=== PATIENT | female | born 2000 | race Caucasian/White ===

== ENCOUNTER 2022-04-08 15:53 | Emergency (ER) | payer OTHER ==
[~2022-04-08] VITALS: Ht 157.5 cm; Wt 81.8 kg
[2022-04-08] MEDS ORDERED: ONDANSETRON 4MG 2ML VIAL IV ONE (16:30)
[2022-04-08] MEDS ORDERED: MORPHINE 4 MG/ML 1ML VIAL IV ONE (16:30)
[2022-04-08] MEDS ORDERED: NS 1,000 ML IV ONE (16:30)
[2022-04-08] MEDS ORDERED: ACETAMINOPHEN TAB 650MG DOSE (2X325MG) PO ONE (16:35)
[2022-04-08 17:46] LABS: BASO % 0.5 % (0.0-1.0); HEMOGLOBIN 14.8 g/dl (12.0-15.5); LYMPH # 0.4 10^3/uL (1.5-5.0); LYMPH % 6.6 % (24.0-44.0); MEAN CORPUSCULAR HGB CONC 33.6 g/dl (32.0-36.5); MEAN CORPUSCULAR VOLUME 86.1 fl (80.0-96.0); MONO # 0.3 10^3/uL (0.0-0.8); MONO % 4.7 % (2.0-8.0); NEUTROPHILS # 5.8 10^3/uL (1.5-8.5); NEUTROPHILS % 87.9 % (36.0-66.0); PLATELET COUNT, AUTOMATED 184 10^3/uL (150-450); RED BLOOD COUNT 5.11 10^6/uL (4.00-5.40); WHITE BLOOD COUNT 6.6 10^3/uL (4.0-10.0)
[2022-04-08 18:11] LABS: ALBUMIN 3.7 G/DL (3.2-5.2); BILIRUBIN,DIRECT 0.4 MG/DL (<0.4); BILIRUBIN,TOTAL 1.3 MG/DL (0.3-1.2); TOTAL PROTEIN 7.1 G/DL (5.7-8.2)
[2022-04-08 18:15] LABS: HCG, SERUM QUALITATIVE NEGATIVE (NEGATIVE)
[2022-04-08] MEDS ORDERED: ACETAMINOPHEN 325MG/10.15ML UDC PO ONE (18:15)
[2022-04-08 18:19] LABS: RSV AMPLIFICATION NEGATIVE (NEGATIVE)
[2022-04-08 18:48] LABS: BLOOD UREA NITROGEN 15 MG/DL (9-23); CALCIUM LEVEL 8.5 MG/DL (8.5-10.1); CARBON DIOXIDE LEVEL 25 MMOL/L (20-31); CHLORIDE LEVEL 105 MMOL/L (98-107); CREATININE FOR GFR 0.94 MG/DL (0.55-1.30); GLOMERULAR FILTRATION RATE > 60.0 (>60); GLUCOSE, FASTING 90 MG/DL (60-100); POTASSIUM SERUM 3.7 MMOL/L (3.5-5.1); SODIUM LEVEL 138 MMOL/L (136-145)
[2022-04-08] MEDS ORDERED: ISOVUE-370 76% 100ML VIAL As Ordered ONE (19:08)
[2022-04-08 19:48] VITALS: BP 115/66
[2022-04-08] MEDS ORDERED: ONDA4TAB6 PO (20:34)
[2022-04-08] MEDS ORDERED: ONDANSETRON 4MG TAB PO ONE (20:35)
== END 2022-04-08 20:46 | disposition home or self-care (01) ==
LOC: M ED 15:53
DX: K52.9 Noninfective gastroenteritis and colitis, unspecified (principal); E86.0 Dehydration; N88.9 Noninflammatory disorder of cervix uteri, unspecified
CPT/HCPCS: 36415; 74177; 80048; 80076; 81001; 83605; 83690; 84702; 84703; 85025; 87086; 87631; 96361; 96374; 96375; 99284; J2270; J2405